=== PATIENT | female | born 2000 | race Hispanic/Latino ===

== ENCOUNTER 2022-05-30 16:38 | Emergency (ER) | payer OTHER, SELFPAY ==
--- NOTE | ~2022-05-30 | XR_ITS ---
XR chest 2V DATE: 05/30/2022 18:05 INDICATION: Chest pain TECHNIQUE: PA and lateral views COMPARISON: None FINDINGS: Normal heart size. No hilar or mediastinal enlargement. No pulmonary infiltrate or consolid ation, pleural effusion or pulmonary vascular congestion or pneumothorax. Status post cholecystectomy. Included skeletal structures are unremarkable. IMPRESSION: No active cardiopulmonary disease Status post cholecystectomy Reviewed, dictated and finalized at location A. ULA CHECKER
[2022-05-30 17:23] VITALS: BP 134/95; PULSE 82; RESP 16; TEMP 37.1; O2SAT 100
--- NOTE | 2022-05-30 17:25 | ECG_ITS ---
Measurements Intervals [place] Rate: 82 P: 23 SC: 145 QRS: 27 QRSD: 89 T: -9 QT: 360 QTc: 421 Interpretive Statements SINUS RHYTHM NONSPECIFIC T-WAVE ABNORMALITY NO PREVIOUS ECG AVAILABLE FOR COMPARISON Electronically Signed On 05-31-2022 17:48:18 CEMENT BREAKER by Niko Salguero M.D.
[2022-05-30 17:46] LABS: Basophils Absolute Auto 0.1 K/mm3 (0.0-0.1); Basophils Percent Auto 0.9 % (0.2-1.2); Eosinophils Absolute Auto 0.2 K/mm3 (0-0.3); Eosinophils Percent Auto 1.6 % (0-4.4); Hematocrit 43.3 % (37.0-47.0); Hemoglobin 14.7 g/dL (12.0-15.0); Immature Granulocyte Absolute 0.08 K/mm3 (0.00-0.031); Immature Granulocyte Percent A 0.6 % (0-0.5); Lymphocytes Absolute Auto 4.14 K/mm3 (0.9-3.2); Lymphocytes Percent Auto 31.6 % (18.3-44.2); Mean Corpuscular HGB Conc 33.9 g/dl (32-36); Mean Corpuscular Hemoglobin 29.3 pg (26-34); Mean Corpuscular Volume 86.4 fl (80-100); Monocytes Absolute Auto 0.8 K/mm3 (0.1-0.6); Monocytes Percent Auto 5.9 % (2.6-8.5); Neutrophils Absolute Auto 7.8 K/mm3 (1.3-6.7); Neutrophils Percent Auto 59.4 % (45.5-73.1); Platelet Count Result 310 k/mm3 (150-375); Red Blood Count 5.01 M/mm3 (4.2-5.4); Red Cell Distribution Width 12.4 % (11.5-14.5); White Blood Count 13.1 K/mm3 (4.5-10.0)
[2022-05-30 17:54] LABS: Prothrombin Time 13.1 Seconds (11.1-14.7)
[2022-05-30 17:55] LABS: Partial Thromboplastin Time 37.3 SECONDS (22.3-36.8)
[2022-05-30 17:58] LABS: Alanine Aminotransferase 52 U/L (6-35); Albumin Level 5.1 g/dL (3.5-5.1); Alkaline Phosphatase 122 U/L (38-126); Anion Gap 10 mmol/L (8-16); Aspartate Amino Transferase 32 U/L (14-36); Bilirubin,Total 0.4 mg/dL (0.2-1.3); Blood Urea Nitrogen 12 mg/dL (7-17); Calcium 9.4 mg/dL (8.4-10.2); Carbon Dioxide 23 mmol/L (22-30); Chloride 107 mmol/L (98-107); Estimated CRCL calculation 141 ml/min; Estimated Glomerular Filt Rate > 60; Glucose 92 mg/dL (65-110); Lipase 107 U/L (23-300); Sodium 140 mmol/L (137-145)
[2022-05-30 18:08] LABS: Troponin I < 0.012 ng/mL (0.000-0.034)
--- NOTE | 2022-05-30 19:26 | ED.CHESTPAIN ---
HPI - Chest Pain General Chief Complaint: Chest Pain Stated Complaint: shortness of breath Time Seen by Provider: 05/30/22 19:12 History of Present Illness HPI narrative: 22-year-old female presenting with symptoms of some chest tightness that started this morning, with a feeling of shortness of breath, nausea, tingling in her hands and feet, this all resolved for a while but came back for a few minutes while getting her x-rays. Today, and when awakened. She has been feeling somewhat stressed, she has been working 7 days a week. No significant medical history, no family history of heart disease, dissections, aneurysms. Related Data Allergies Allergy/AdvReac Type Severity Reaction Status Date / Time No Known Allergies Allergy Verified 05/30/22 20:02 Review of Systems Review of Systems: CONST: No fever. HEENT: No sore throat C/V: Chest tightness RESP: Shortness of breath GI: Nausea : No dysuria. M/S: No joint pain. SKIN: No rash. NEURO: Some tingling in hands and feet PSYCH: Very slight stress/anxiety PMFSH Past Medical History Medical History (Updated 05/31/22 @ 00:01 by Emilia Chahal) E. coli infection Family History Family History (Updated 05/30/22 @ 19:48 by Mary Parada MD) Other Diabetes mellitus Exam Narrative: EXAMINATION OF ORGAN SYSTEMS/BODY AREAS: Constitutional: Vital signs per nursing GENERAL:[No acute distress, non-toxic appearing.] HEAD: Normal with no signs of head trauma. EYES: EOMI, conjunctiva normal ENT: Hearing grossly intact LUNGS: Nonlabored breathing. Clear lung sounds auscultation bilaterally HEART: [Regular rate and rhythm] ABD: [Soft], [nontender to palpation] EXT: Normal range of motion SKIN: [No rashes or lesions.] NEURO: [Alert and oriented x 3. No gross focal sensory or strength deficits.] Ambulating with normal steady gait. PSYCH: Normal affect Course Vital Signs Vital signs: Vital Signs Temperature 98.7 F 05/30/22 17:23 Pulse Rate 82 05/30/22 17:23 Respiratory Rate 16 05/30/22 17:23 Blood Pressure 134/95 H 05/30/22 17:23 Pulse Oximetry 100 05/30/22 17:23 Oxygen Delivery Room Air 12/20/22 17:23 Temperature 98.7 F 12/20/22 17:23 Pulse Rate 82 05/30/22 17:23 Respiratory Rate 16 05/30/22 17:23 Blood Pressure 134/95 H 05/30/22 17:23 Pulse Oximetry 100 05/30/22 17:23 Oxygen Delivery Room Air 05/30/22 17:23 MDM - Chest Pain MDM Narrative Medical decision making narrative: 22yoF p/w symptoms likely anxiety/stress reaction, less likely ACS given her young age, PE as she is PERC negative without DVT symptoms, pneumonia without cough. Chest x-ray here is negative, labs including troponin are negative except for a slightly elevated white count. EKG - 12-Lead: Performed at 1730. Interpreted by me. [Sinus rhythm]. Rate 82. [Normal] axis. UT-interval [normal]. QRS duration [normal]. QTc [normal]. [No ST segment elevation or depression]. [T-wave normal]. Impression: No EKG evidence of acute ischemia or dysrhythmia. Patient is reassured, her symptoms have improved, she is no longer having any chest pain at this time, have urged her to follow-up with a primary care doctor and she can return for any worsening issues. Procedures: Pulse ox interpretation normal Lab Data 05/30/22 17:38 05/30/22 17:38 Labs: Lab Results 05/30/22 05/30/22 05/30/22 Range/Units 17:38 17:38 17:38 WBC 13.1 H (4.5-10.0) K/mm3 RBC 5.01 (4.2-5.4) M/mm3 Hgb 14.7 (12.0-15.0) g/dL Hct 43.3 (37.0-47.0) % MCV 86.4 (80-100) fl MCH 29.3 (26-34) pg MCHC 33.9 (32-36) g/dl RDW 12.4 (11.5-14.5) % Plt Count 310 (150-375) k/mm3 MPV 10.0 (7.4-10.4) fl Immature Gran % (Auto) 0.6 H (0-0.5) % Neut % (Auto) 59.4 (45.5-73.1) % Lymph % (Auto) 31.6 (18.3-44.2) % Blanco % (Auto) 5.9 (2.6-8.5) % Eos % (Auto) 1.6 (0-4.4) % Baso % (Auto) 0.9 (0.2-1.2) %
== END 2022-05-30 20:17 | disposition home or self-care (01) ==
PROVIDERS: Emergency Medicine; Emergency Provider Emergency Medicine; PCP Family Medicine
DX: R07.89 Other chest pain (principal); F41.9 Anxiety disorder, unspecified; R94.31 Abnormal electrocardiogram [ECG] [EKG]
CPT/HCPCS: 36415; 71046; 80053; 83690; 84484; 85025; 85610; 85730; 93005; 99284

== ENCOUNTER 2022-11-07 12:05 | Emergency (ER) | payer OTHER, SELFPAY ==
[2022-11-07 12:09] VITALS: PULSE 98; RESP 16; TEMP 36.6; O2SAT 98
[2022-11-07 12:58] LABS: Influenza A QL RT-PCR Negative (Negative); Influenza B QL RT-PCR Negative (Negative); RSV RNA, RT-PCR Negative (Negative); SARS-CoV-2 RNA PCR Negative (Negative)
--- NOTE | 2022-11-07 13:16 | PC.NURSE ---
Pt states I am going to leave because I am feeling better. Pt ambulated out in NAD, steady gait.
== END 2022-11-07 13:26 | disposition left against medical advice (07) ==
LOC: ANHED 13:19
PROVIDERS: Emergency Provider Emergency Medicine; PCP Family Medicine
DX: R06.00 Dyspnea, unspecified (principal); Z20.822 Contact with and (suspected) exposure to COVID-19
CPT/HCPCS: 87637; 99199

== ENCOUNTER 2022-12-16 02:30 | Observation (INO) | payer OTHER, MEDICAID, SELFPAY ==
[2022-12-16] VITALS (38 sets, daily range): BP systolic 104–155; BP diastolic 61–105; PULSE 80–105; RESP 14–82; TEMP 36.7–37; O2SAT 93–99; BMI 38.0
--- NOTE | ~2022-12-16 | US_ITS ---
EXAMINATION: US abdomen limited DATE: 12/17/2022 10:43 INDICATION: Abnormal liver function tests. TECHNIQUE: Multiple grayscale and Doppler ultrasound images of the abdomen were obtained. COMPARISON: None FINDINGS: The visualized portions of the head, body, and tail of the pancreas are normal. There is di ffuse hepatic steatosis. No liver surface nodularity. There is normal flow in main portal vein. The g allbladder is absent. The common duct is normal and measures 4 mm. IMPRESSION: 1. Diffuse hepatic steatosis. Reviewed, dictated and finalized at location A.
--- NOTE | 2022-12-16 02:40 | ECG_ITS ---
Measurements Intervals [place] Rate: 90 P: 35 [place]: 142 QRS: 24 QRSD: 93 T: 10 QT: 363 QTc: 446 Interpretive Statements SINUS RHYTHM BORDERLINE T WAVE ABNORMALITY- INFERIOR LEADS BORDERLINE ECG COMPARED TO ECG 05/30/2022 17:30:54 NO SIGNIFICANT CHANGES Electronically Signed On 12-16-2022 7:25:17 CDT by Junaid Chapa D.O.
--- NOTE | 2022-12-16 02:55 | PC.NURSE ---
2044 Called poison control, spoke with Keri, pharmacist and was informed to monitor for seizures, up to 12 hours and do supportive care. She also recommended do EKG, magnesium and potassium. She recommends to monitor patient up to at least 0700. She also states with the medication patient took, it can cause false positives on her drug screen. ERP notified.
[2022-12-16] MEDS: SODIUM CHLORIDE 0.9% IV 1,000 ML 999 ML IV CONT ×3 (03:10→06:08)
--- NOTE | 2022-12-16 03:10 | ED.GENADULT ---
HPI - General Adult General Chief complaint: Overdose <Aaron Sloan MD - Last Filed: 12/16/22 04:31> Stated complaint: DIZZY AFTER TAKING MEDS <Aaron Sloan MD - Last Filed: 12/16/22 04:31> Time Seen by Provider: 12/16/22 02:40 <Aaron Sloan MD - Last Filed: 12/16/22 04:31> History of Present Illness HPI narrative: Patient 22-year-old female who presents the emergency department with chief complaint of overdose. Patient states she is not sure why she did this but denies suicidal or homicidal ideation patient reports she took ten 300 mg Wellbutrin tablets today patient states she took 7 of them earlier in the day around noon and then took 3 of them at around 7 PM the patient then called poison control and they recommended the patient come to the emergency department for evaluation. <Aaron Sloan MD - Last Filed: 12/16/22 04:31> Related Data Home medications: Home Medications Medication Instructions Recorded Confirmed bupropion HCl 300 mg 24 hr tablet, mg PO 12/16/22 extended release <Aaron Sloan MD - Last Filed: 12/16/22 04:31> Allergies/adverse reactions: Allergies Allergy/AdvReac Type Severity Reaction Status Date / Time No Known Allergies Allergy Verified 12/16/22 02:40 <Aaron Sloan MD - Last Filed: 12/16/22 04:31> Review of Systems Review of Systems: A 10 system review of systems was completed on the patient and is negative except for what is stated in the HPI. Nursing and ancillary documentation was reviewed. <Aaron Sloan MD - Last Filed: 12/16/22 04:31> [facility] Past Medical History Medical History: Medical History E. coli infection <Aaron Sloan MD - Last Filed: 12/16/22 04:31> Family History Family History: Family History Other Diabetes mellitus <Aaron Sloan MD - Last Filed: 12/16/22 04:31> Exam Narrative: GENERAL: Well-appearing, well-nourished, and in no acute distress. HEAD: Normocephalic, atraumatic. EYES: PERRLA and EOMI. ENT: Nares clear, no rhinorrhea or epistaxis. Mucous membranes moist. NECK: Supple. CHEST: Clear to auscultation. No respiratory distress. HEART: Regular rate and rhythm. No murmur heard. Normal peripheral pulses. ABDOMEN: Soft, nontender, nondistended, normal active bowel sounds. EXTREMITIES: Normal range of motion. No edema. SKIN: Warm, dry, no rash. NEURO: No focal deficits. Alert and oriented x3. PSYCH: Normal mood and affect. <Aaron Sloan MD - Last Filed: 12/16/22 04:31> Course Course Emergency Course: Assumed care of patient at shift change. Patient is a 22-year-old female who ingested approximately 3 g of Wellbutrin yesterday with unclear intent. She remains hemodynamically stable but she has developed worsening hallucinations. On my evaluation, she is obviously responding to internal stimuli. Repeat EKG was performed which shows normal QRS and QTc. Poison control advises observation for at least 18 hours. I spoke with our hospitalist who advises admission to the ICU. I spoke with Dr. Herman who is happy to consult. Patient has been accepted to the ICU for observation and further evaluation. <Elena Mckenna MD - Last Filed: 12/16/22 07:01> Consultations Consultation #1: Spoke with Dr. Herman who advises 2 to 3 L normal saline. Additional fluids have been ordered. <Elena Mckenna MD - Last Filed: 12/16/22 07:01> Vital Signs Vital signs: Vital Signs Temperature 98.1 F 12/16/22 02:32 Pulse Rate 91 12/16/22 02:32 Respiratory Rate 15 12/16/22 02:32 Blood Pressure 144/93 H 12/16/22 02:32 Pulse Oximetry 98 12/16/22 02:32 Oxygen Delivery Room Air 12/16/22 02:32 Temperature 98.1 F 12/16/22 0
[2022-12-16 03:18] LABS: Basophils Absolute Auto 0.1 K/mm3 (0.0-0.1); Basophils Percent Auto 0.9 % (0.2-1.2); Eosinophils Absolute Auto 0.1 K/mm3 (0-0.3); Eosinophils Percent Auto 0.7 % (0-4.4); Immature Granulocyte Absolute 0.11 K/mm3 (0.00-0.031); Immature Granulocyte Percent A 0.9 % (0-0.5); Lymphocytes Absolute Auto 3.51 K/mm3 (0.9-3.2); Lymphocytes Percent Auto 29.1 % (18.3-44.2); Mean Corpuscular HGB Conc 33.3 g/dl (32-36); Mean Corpuscular Volume 89.9 fl (80-100); Monocytes Absolute Auto 0.8 K/mm3 (0.1-0.6); Monocytes Percent Auto 6.6 % (2.6-8.5); Neutrophils Absolute Auto 7.5 K/mm3 (1.3-6.7); Neutrophils Percent Auto 61.8 % (45.5-73.1); Platelet Count Result 289 k/mm3 (150-375); Red Blood Count 4.67 M/mm3 (4.2-5.4); Red Cell Distribution Width 12.3 % (11.5-14.5); White Blood Count 12.1 K/mm3 (4.5-10.0)
[2022-12-16 03:27] LABS: Acetaminophen < 10 ug/mL (10-30); Ethanol < 10 mg/dL (<10); Salicylate < 1.0 mg/dL (2-20)
[2022-12-16 03:29] LABS: Alanine Aminotransferase 51 U/L (6-35); Albumin Level 4.5 g/dL (3.5-5.1); Alkaline Phosphatase 114 U/L (38-126); Anion Gap 6 mmol/L (8-16); Aspartate Amino Transferase 37 U/L (14-36); Bilirubin,Total 0.3 mg/dL (0.2-1.3); Blood Urea Nitrogen 13 mg/dL (7-17); Calcium 9.2 mg/dL (8.4-10.2); Carbon Dioxide 26 mmol/L (22-30); Chloride 105 mmol/L (98-107); Estimated CRCL calculation 127 ml/min; Estimated Glomerular Filt Rate > 60; Glucose 98 mg/dL (65-110); Potassium 3.5 mmol/L (3.4-5.0); Sodium 137 mmol/L (137-145)
--- NOTE | 2022-12-16 03:49 | PC.NURSE ---
Patient attempted to provide a urine specimen, unsuccessful and patient unsteady on her feet. Patient states okay to do straight cath.
[2022-12-16 04:17] LABS: Appearance Urine Clear (Clear); Bacteria Urine None Seen /hpf; Bilirubin Urine Negative (Negative); Blood Urine Negative (Negative); Color Urine Yellow (Yellow); Glucose Urine UA Negative (Negative); Ketones Urine 1+ mg/dL (Negative); Leukocyte Esterase Ur Negative LEU/UL (Negative); Need Manual Microscopic Reviewed; Nitrate Urine Negative (Negative); Non Pathogenic Casts 0-2; Protein Urine Trace mg/dL (Negative); RBC Urine 0-2 /hpf (0-2); Specific Grav Ur 1.028 (1.001-1.035); Squamous Epithelial Cell Urine None seen /hpf (Few); WBC Urine 0-5 /hpf; pH Urine 5.5 (5.0-9.0)
[2022-12-16 04:38] LABS: Amphetamine Screen Urine Negative (Negative); Barbiturate Screen Urine Negative (Negative); Benzodiazepines Screen Urine Negative (Negative); Cannabinoid Screen Urine Positive (Negative); Cocaine Screen Urine Negative (Negative); Methadone Screen Urine Negative (Negative); Opiate Screen Urine Negative (Negative); Phencyclidine Screen Urine Negative (Negative)
[2022-12-16 04:41] LABS: Add Urine Microscopic? YES
--- NOTE | 2022-12-16 04:47 | PC.NURSE ---
Patient states I am kind of seeing the simpsons, like the tv show on the wall and ceiling. I don't even watch that show. ERP notified.
--- NOTE | 2022-12-16 05:02 | PC.NURSE ---
Addendum entered by Linda Davis RN 12/16/22 05:09: Jacqueline also stated patient may be exhibiting signs of toxicity and may need to be monitored longer than initial 12hr post last ingestion. ERP notified and request possible admittance to hospital for monitoring. Original Note: Jacqueline RN from poison control calls to get update on patient and lab results. This RN informed her of lab results and some hallucinations the patient was seeing. Jacqueline also with patient starting to hallucinate she may have some delayed n/v or other symptoms such as urinary retention and to possibly monitor for 12-16 hours post last ingestion. She stated they will call back later for updates. ERP notified.
--- NOTE | 2022-12-16 05:53 | PC.NURSE ---
Patient states she is seeing more cartoons now. ERP notified.
--- NOTE | 2022-12-16 06:12 | PC.NURSE ---
Patient c/o headache and nausea, ERP notified.
[2022-12-16] MEDS: ACETAMINOPHEN 500 MG TABLET 1000 MG PO (06:16)
--- NOTE | 2022-12-16 08:09 | ECG_ITS ---
Measurements Intervals [place] Rate: 91 P: 31 [place]: 124 QRS: 37 QRSD: 90 T: -2 QT: 351 QTc: 433 Interpretive Statements SINUS RHYTHM BORDERLINE ST-T WAVE ABNORMALITY- INFERIOR LEADS BASELINE ARTIFACT- I, III, AVR, AVL, AVF, V1 BORDERLINE ECG COMPARED TO ECG 12/16/2022 13:29:52 ST-T WAVE ABNORMALITY NOW PRESENT Electronically Signed On 12-17-2022 7:26:52 CDT by Junaid Chapa D.O.
--- NOTE | 2022-12-16 08:17 | ADMGEN ---
This patient, Melba Rivera, was admitted to Intensive Care Unit-7 at 0729, suicide precautions initiated. Patient/family oriented to hospital policies and general routines including ID bracelet, bed and alarms, visiting hours, pain management, procedures, bathroom and other care routines, personal items, smoking policy, room service/diet, and visiting hours. Information on how to activate the Rapid Response Team has been discussed. Patient/Family are encouraged to report perceived risks to care and to ask questions if they do not understand what they are told or what they should do.
--- NOTE | 2022-12-16 09:09 | WPDCNINT ---
Assessment and Plan Assessment and plan (1) Drug overdose: Code(s): T50.901A - Poisoning by unspecified drugs, medicaments and biological substances, accidental (unintentional), initial encounter Status: Acute Assessment and Plan: 12/16/2022: Patient presented with drug overdose, the ER she states she that she took Wellbutrin 300 mg x 10 pills (7 pills in the afternoon of 12/15/2022 and 3 pills at around 7:00 p.m. on 12/15/2022), after which she cold the poison Control and they recommend that she come to the ED for evaluation. -poison control was notified from the ER, recommended monitoring patient with serial EKGs, no indication for bicarb at this time -patient will be given a total of 3 L of IV fluids -will continue maintenance IV fluids -watch for serotonin syndrome -watch for tachycardia, hypertension, fevers, clonus, seizures, altered mental status, abdominal pain, nausea, vomiting, diarrhea -serial EKGs (2) Hallucinations, visual: Code(s): R44.1 - Visual hallucinations Status: Acute Assessment and Plan: Hallucinations have resolved, will continue to monitor any neurologic symptoms (3) Depression: Code(s): F32.A - Depression, unspecified Status: Acute Assessment and Plan: Patient with history of depression, possible suicidal behavior with overdose -will have crisis management and care coordination evaluate the patient when she is stable Plan DVT prophylaxis: SCDs Stress ulcer prophylaxis: Not indicated Nutrition: Regular diet Code Status: Full code Critical Care Time Spent: 45 minutes Due to a high probability of clinically significant, life threatening deterioration, the patient required my highest level of preparedness to intervene emergently and I personally spent this critical care time directly and personally managing the patient. This critical care time included obtaining a history; examining the patient; pulse oximetry; ordering and review of studies; arranging urgent treatment with development of a management plan; evaluation of patient's response to treatment; frequent reassessment; and discussions with other providers. It was exclusive of separately billable procedures and treating other patients and teaching time. Please see Assessment and Plan section and the rest of the note for further information on patient assessment and treatment This dictation may have been done utilizing a voice recognition system. Attempts have been made to correct errors. However, there may be uncorrected grammatical, spelling, and recognitions errors present. Geography Teacher Consult Note Consult date: 12/16/22 HPI: Melba Rivera is a 22 year old female past medical history of depression, seasonal asthma presented the ED on 12/16/2022 with complains of overdose. Patient stated that she took Wellbutrin 300 mg x 10 pills (7 pills in the afternoon of 12/15/2022 and 3 pills at around 7:00 p.m. on 12/15/2022), after which she cold the poison Control and they recommend that she come to the ED for evaluation. Patient has been hemodynamically stable, QTC on the initial EKG was 446. WBC count is 12.1, slightly elevated LFTs, UA was negative, drug screen was positive for cannabinoids. Patient was given 1 L of IV fluids, I discussed with the ER physician and recommended giving at 2 2 L of IV fluid bolus. Poison Control was notified from the ER and they recommended monitoring a QTC on serial EKGs, no bicarb infusion at this time was recommended. He was transferred to the ICU for further management as she was initially having some hallucination. Patient seen and examined the ICU, remains hemodynamically stable, is alert, awake, oriented x3, denies any hallucinations at this time. She states that she has seasonal asthma, depression. She did take some marijuana. She denies any alcohol or other illicit drugs. Patient denies any chest pain, shortness of breath, abdominal pain, nausea, vomiting, lightheadedn
[2022-12-16] MEDS: LACTATED RINGERS 1,000 ML 75 ML IV CONT (09:17)
--- NOTE | 2022-12-16 09:59 | PC.NURSE ---
Melba has given permission to give information to her contact Angle.
--- NOTE | 2022-12-16 12:09 | ECG_ITS ---
Measurements Intervals [place] Rate: 90 P: 34 [place]: 150 QRS: 26 QRSD: 91 T: 0 QT: 370 QTc: 453 Interpretive Statements SINUS RHYTHM BORDERLINE T WAVE ABNORMALITY- INFERIOR LEADS BORDERLINE ECG COMPARED TO ECG 12/16/2022 05:36:52 NO SIGNIFICANT CHANGES Electronically Signed On 12-16-2022 16:31:31 CDT by Junaid Chapa D.O.
--- NOTE | 2022-12-16 14:46 | PC.NURSE ---
Code purple called at 1441 due to patient yelling at ICU psychiatry instructor wanting to leave and get off suicide precautions. Patient not medically cleared at this time. Security at bedside to remind patient she cannot leave until crisis comes to evaluate once medically clear. Patient refusing IV fluids and sitting on couch in ICU 7 with no telemetry on. ICU psychiatry instructor aware patient will not put telemetry back on. Will try to place patient back on monitor once patient gets back to bed.
--- NOTE | 2022-12-16 14:47 | PC.NURSE ---
Patient became agitated and attempting to pull out IV after speaking with Dr. Herman. She is upset with suicide precautions and doesn't like to be watched. She wants to go AMA and became upset when told she is unable to do so. She refused to answer Dr. Herman about why she took 10 Wellbutrin. She said she took them to just see how long it would take but didn't say how long it would take to do what. She stated I didn't take that many why would a suicide person call 911 but still refuses to say why she took the pills that are over a year old. [facility] called and security in room speaking with patient. Patient sitting on couch and refusing to get hooked back up to telemetry. Dr. Herman aware she is not on telemetry at this time. He said to discontinue her IVF. She is eating and urinating ok.
--- NOTE | 2022-12-16 16:09 | ECG_ITS ---
Measurements Intervals [place] Rate: 76 P: 35 [place]: 153 QRS: 30 QRSD: 90 T: 5 QT: 391 QTc: 442 Interpretive Statements SINUS RHYTHM WITH SINUS ARRHYTHMIA BASELINE ARTIFACT- I, II, AVR, AVL NORMAL ECG COMPARED TO ECG 12/16/2022 20:09:08 SINUS ARRHYTHMIA NOW PRESENT Electronically Signed On 12-17-2022 7:33:49 CDT by Junaid Chapa D.O.
--- NOTE | 2022-12-16 16:12 | PM.IMHP ---
H&P: HPI History of Present Illness Date/Time: 12/16/22 16:12 Chief Complaint: overdose Narrative: ED-HPI narrative: ? ? ? Patient 22-year-old female who presents the emergency department with chief complaint of overdose.? Patient states she is not sure why she did this but denies suicidal or homicidal ideation patient reports she took ten 300 mg Wellbutrin tablets today patient states she took 7 of them earlier in the day around noon and then took 3 of them at around 7 PM the patient then called poison control and they recommended the patient come to the emergency department for evaluation. Patient is 22 year old female under lot of stress and recently her mother and resulted reactive depression and took 9tabs of Wellbutrin which were prescribed to her sometime ago, aftertaking the medication patient felt remorse and herself called poisen controlled and came to ER, patient is being monitor, her EKG are normal. Patient has no c/o chest pain, shortness of breath, dizziness, or palpitation.. Patient is upset at herself and at time angry, pulled out her telemonitor and IV, I spoke with her and explained to that we need to monitor her heart, she has agreed to keep tele, will reassess patient in the morning and plan. Patient admitted as an observation status Review of Systems Review of Systems: All systems reviewed & are unremarkable except as noted in HPI and below PMFSH Past Medical History Medical History E. coli infection Family History Family History (Updated 12/16/22 @ 08:38 by Alejandrina Ann RN) Father Hyperthyroidism Grandparent Diabetes mellitus Other Hypothyroidism Social History Social History Smoking status: Never smoker Alcohol intake: current Drinks per week: 0 Substance use: never Substance use type: does not use Lack of Transportation: No Lack of Food: Never True Current Housing: I Have Housing Concerned About Future Housing: No Difficulty Paying Gas/Electric Bills: No Difficulty Paying for Meds: No Currently Unemployed: No Education: High School Diploma/GED Difficulty w/ Childcare or Family Care: No Spiritual care concerns: No Meds Home Medications and Allergies Home Medications Medication Instructions Recorded Confirmed Type No Home Medications 12/16/22 12/16/22 History Allergies Allergy/AdvReac Type Severity Reaction Status Date / Time No Known Allergies Allergy Verified 12/16/22 02:40 Vital Signs Vital Signs - 24 hr 12/16/22 02:32 12/16/22 02:39 12/16/22 02:37 Temperature 98.1 F Pulse Rate 91 87 Respiratory Rate 15 82 H 17 Blood Pressure 144/93 H 144/93 H Pulse Oximetry 98 98 Oxygen Delivery Room Air 12/16/22 02:38 12/16/22 02:45 12/16/22 02:47 Temperature Pulse Rate 101 H 96 92 Respiratory Rate 15 16 15 Blood Pressure 136/89 Pulse Oximetry 98 96 96 Oxygen Delivery 12/16/22 03:00 12/16/22 03:15 12/16/22 03:30 Temperature Pulse Rate 96 101 H 86 Respiratory Rate 19 25 H 14 Blood Pressure Pulse Oximetry 98 96 97 Oxygen Delivery 12/16/22 03:32 12/16/22 03:48 12/16/22 04:00 Temperature Pulse Rate 89 105 H 91 Respiratory Rate 15 14 17 Blood Pressure 127/69 Pulse Oximetry 96 98 99 Oxygen Delivery 12/16/22 04:15 12/16/22 04:17 12/16/22 04:30 Temperature Pulse Rate 94 93 94 Respiratory Rate 20 14 16 Blood Pressure 115/64 Pulse Oximetry 95 95 94 Oxygen Delivery 12/16/22 04:45 12/16/22 05:00 12/16/22 05:01 Temperature Pulse Rate 93 92 92 Respiratory Rate 23 H 17 22 H Blood Pressure 121/82 Pulse Oximetry 96 96 95 Oxygen Delivery 12/16/22 05:15 12/16/22 05:30 12/16/22 05:45 Temperature Pulse Rate 91 97 80 Respiratory Rate 14 24 H 17 Blood Pressure Pulse Oximetry 94 95 95 Oxygen Delivery 12/16/22 05:47 07/0
--- NOTE | 2022-12-16 17:45 | PC.NURSE ---
Patient is calm at this time. She allowed her telemetry to be hooked back up after speaking with Dr. Cooper. Her friend came to visit and she is feeling a little better. Her friend will stay with her tonight. Both patient and friend abiding by the suicide precaution rules.
--- NOTE | 2022-12-16 20:09 | ECG_ITS ---
Measurements Intervals [place] Rate: 80 P: 27 [place]: 135 QRS: 23 QRSD: 94 T: 12 QT: 378 QTc: 437 Interpretive Statements SINUS RHYTHM NORMAL ECG COMPARED TO ECG 12/16/2022 09:31:49 NO SIGNIFICANT CHANGES Electronically Signed On 12-16-2022 16:44:00 CDT by Junaid Chapa D.O.
[2022-12-17] VITALS (7 sets, daily range): BP systolic 118–134; BP diastolic 82–93; PULSE 72–105; RESP 16–21; TEMP 36.9–37; O2SAT 96–98
--- NOTE | 2022-12-17 00:09 | ECG_ITS ---
Measurements Intervals [place] Rate: 77 P: 14 [place]: 142 QRS: 47 QRSD: 91 T: 2 QT: 389 QTc: 440 Interpretive Statements SINUS RHYTHM BASELINE WANDER- V1 NORMAL ECG COMPARED TO ECG 12/16/2022 23:53:00 NO SIGNIFICANT CHANGES Electronically Signed On 12-17-2022 7:35:14 CDT by Junaid Chapa D.O.
--- NOTE | 2022-12-17 04:09 | ECG_ITS ---
Measurements Intervals [place] Rate: 86 P: 33 [place]: 131 QRS: 32 QRSD: 94 T: -14 QT: 357 QTc: 428 Interpretive Statements SINUS RHYTHM BORDERLINE ST-T WAVE ABNORMALITY- INFERIOR LEADS BASELINE ARTIFACT- I, II BORDERLINE ECG COMPARED TO ECG 12/17/2022 04:02:26 NO SIGNIFICANT CHANGES Electronically Signed On 12-17-2022 18:33:10 CDT by Junaid Chapa D.O.
[2022-12-17 04:35] LABS: Basophils Absolute Auto 0.1 K/mm3 (0.0-0.1); Basophils Percent Auto 1.1 % (0.2-1.2); Eosinophils Absolute Auto 0.1 K/mm3 (0-0.3); Eosinophils Percent Auto 0.7 % (0-4.4); Hematocrit 38.2 % (37.0-47.0); Hemoglobin 12.7 g/dL (12.0-15.0); Immature Granulocyte Percent A 0.9 % (0-0.5); Lymphocytes Absolute Auto 3.45 K/mm3 (0.9-3.2); Lymphocytes Percent Auto 32.1 % (18.3-44.2); Mean Corpuscular HGB Conc 33.2 g/dl (32-36); Mean Corpuscular Hemoglobin 29.9 pg (26-34); Mean Corpuscular Volume 89.9 fl (80-100); Mean Platelet Volume 9.7 fl (7.4-10.4); Monocytes Absolute Auto 0.9 K/mm3 (0.1-0.6); Neutrophils Absolute Auto 6.2 K/mm3 (1.3-6.7); Neutrophils Percent Auto 57.2 % (45.5-73.1); Platelet Count Result 252 k/mm3 (150-375); Red Blood Count 4.25 M/mm3 (4.2-5.4); Red Cell Distribution Width 12.5 % (11.5-14.5); White Blood Count 10.8 K/mm3 (4.5-10.0)
[2022-12-17 04:54] LABS: Alanine Aminotransferase 70 U/L (6-35); Albumin Level 4.1 g/dL (3.5-5.1); Alkaline Phosphatase 80 U/L (38-126); Anion Gap 8 mmol/L (8-16); Aspartate Amino Transferase 120 U/L (14-36); Bilirubin,Total 0.5 mg/dL (0.2-1.3); Blood Urea Nitrogen 7 mg/dL (7-17); Carbon Dioxide 26 mmol/L (22-30); Chloride 107 mmol/L (98-107); Estimated CRCL calculation 127 ml/min; Estimated Glomerular Filt Rate > 60; Glucose 88 mg/dL (65-110); Magnesium 1.9 mg/dL (1.6-2.3); Phosphorus 4.4 mg/dL (2.5-4.5); Potassium 3.6 mmol/L (3.4-5.0); Sodium 141 mmol/L (137-145)
[2022-12-17 08:37] LABS: Hepatitis B Surface Antigen Negative (Negative)
[2022-12-17 08:43] LABS: HAV RESULT Negative (Negative); Hepatitis B Core IgM Result Negative (Negative)
[2022-12-17 08:55] LABS: Hepatitis C Virus Antibody Negative (Negative)
[2022-12-17] MEDS: CALCIUM CARBONATE (TUMS) 500 MG (200 MG ELEMENTAL) PO (11:22)
--- NOTE | 2022-12-17 12:19 | PM.DS ---
DS: Admitting Diagnosis Discharge Date 12/17/2022 Admitting Diagnosis Overdose DS: Discharge Diagnosis Discharge Diagnosis (1) Drug overdose: Code(s): T50.901A - Poisoning by unspecified drugs, medicaments and biological substances, accidental (unintentional), initial encounter Status: Acute Assessment and Plan: 12/16/2022: Patient presented with drug overdose, the ER she states she that she took Wellbutrin 300 mg x 10 pills (7 pills in the afternoon of 12/15/2022 and 3 pills at around 7:00 p.m. on 12/15/2022), after which she cold the poison Control and they recommend that she come to the ED for evaluation. -poison control was notified from the ER, recommended monitoring patient with serial EKGs, no indication for bicarb at this time -received a total of 3 L of IV fluids bolus -will discontinue maintain IV fluids -hemodynamically stable, afebrile, normal blood pressures, normal maintain -serial EKGs with normal QTC and QT intervals -patient is medically stable from ICU standpoint for crisis management and care coordination evaluation (2) Hallucinations, visual: Code(s): R44.1 - Visual hallucinations Status: Acute Assessment and Plan: Hallucinations have resolved, will continue to monitor any neurologic symptoms (3) Depression: Code(s): F32.A - Depression, unspecified Status: Acute Assessment and Plan: Patient with history of depression, possible suicidal behavior with overdose -will have crisis management and care coordination evaluate the patient since she is medically stable (4) Elevated LFTs: Code(s): R79.89 - Other specified abnormal findings of blood chemistry Status: Acute Assessment and Plan: Hepatitis panel is negative -right upper quadrant ultrasound showed diffuse hepatic steatosis DS: Summary Hospital Course Reason for hospitalization: ?? ? Patient 22-year-old female who presents the emergency department with chief complaint of overdose.? Patient states she is not sure why she did this but denies suicidal or homicidal ideation patient reports she took ten 300 mg Wellbutrin tablets today patient states she took 7 of them earlier in the day around noon and then took 3 of them at around 7 PM the patient then called poison control and they recommended the patient come to the emergency department for evaluation. Patient is 22 year old female under lot of stress and recently her mother and resulted reactive depression and took 9tabs of Wellbutrin which were prescribed to her sometime ago, aftertaking the medication patient felt remorse and herself called poisen controlled and came to ER, patient is being monitor, her EKG are normal. Patient has no c/o chest pain, shortness of breath, dizziness, or palpitation.. Patient is upset at herself and at time angry, pulled out her telemonitor and IV, I spoke with her and explained to that we need to monitor her heart, she has agreed to keep tele, will reassess patient in the morning and plan. Hospital Course: Patient is clinically stable and was seen by crisis team and has agreed not to harm herself in her roomate is present in the room, will discharge the patient today Time Spent with Patient Time attestation: Total time spent providing and/or coordinating discharge services: Exam Narrative: Morbidly obese Patient is comfortable, NAD HEENT: eyes are clear and none icteric LUNGS: Normal respiratory effort ABD: Distended Lower extremities: no edema SKIN: nonjaundiced Neuro: grossly intact. DS: Data Data Completed and Pending Labs on day of discharge: Labs from last 24 hours 12/17/22 12/17/22 04:26 04:22 WBC 10.8 H RBC 4.25 Hgb 12.7 Hct 38.2 MCV 89.9 MCH 29.9 MCHC 33.2 RDW 12.5 Plt Count 252 MPV 9.7 Immature Gran % (Auto) 0.9 H Neut % (Auto) 57.2 Lymph % (Auto) 32.1 [place] % (Auto) 8.0 Eos % (Auto) 0.7 Baso % (Auto) 1.1 Lymph # (Auto) 3.45 H
--- NOTE | 2022-12-17 12:36 | WPDINTPN ---
Progress Note: A&P Assessment and Plan (1) Drug overdose: Code(s): T50.901A - Poisoning by unspecified drugs, medicaments and biological substances, accidental (unintentional), initial encounter Status: Acute Assessment and Plan: 12/16/2022: Patient presented with drug overdose, the ER she states she that she took Wellbutrin 300 mg x 10 pills (7 pills in the afternoon of 12/15/2022 and 3 pills at around 7:00 p.m. on 12/15/2022), after which she cold the poison Control and they recommend that she come to the ED for evaluation. -poison control was notified from the ER, recommended monitoring patient with serial EKGs, no indication for bicarb at this time -received a total of 3 L of IV fluids bolus -will discontinue maintain IV fluids -hemodynamically stable, afebrile, normal blood pressures, normal maintain -serial EKGs with normal QTC and QT intervals -patient is medically stable from ICU standpoint for crisis management and care coordination evaluation (2) Hallucinations, visual: Code(s): R44.1 - Visual hallucinations Status: Acute Assessment and Plan: Hallucinations have resolved, will continue to monitor any neurologic symptoms (3) Depression: Code(s): F32.A - Depression, unspecified Status: Acute Assessment and Plan: Patient with history of depression, possible suicidal behavior with overdose -will have crisis management and care coordination evaluate the patient since she is medically stable (4) Elevated LFTs: Code(s): R79.89 - Other specified abnormal findings of blood chemistry Status: Acute Assessment and Plan: Hepatitis panel is negative -right upper quadrant ultrasound showed diffuse hepatic steatosis Plan DVT prophylaxis: SCDs Stress ulcer prophylaxis: Not indicated Nutrition: Regular diet Code Status: Full code Critical Care Time Spent: 31 minutes Patient can be downgraded to medical status but will remain in the ICU for possible drug overdose and suicidal precautions Discussed with patient and her friend at bedside and updated them regarding patient's condition and plan of care. I answered all questions Due to a high probability of clinically significant, life threatening deterioration, the patient required my highest level of preparedness to intervene emergently and I personally spent this critical care time directly and personally managing the patient. This critical care time included obtaining a history; examining the patient; pulse oximetry; ordering and review of studies; arranging urgent treatment with development of a management plan; evaluation of patient's response to treatment; frequent reassessment; and discussions with other providers. It was exclusive of separately billable procedures and treating other patients and teaching time. Please see Assessment and Plan section and the rest of the note for further information on patient assessment and treatment This dictation may have been done utilizing a voice recognition system. Attempts have been made to correct errors. However, there may be uncorrected grammatical, spelling, and recognitions errors present. Subjective Date/time seen: 12/17/22 12:36 Interval history: Reason for consult: Drug overdose -ingested Wellbutrin 300 mg x 10 pills, suicidal behavior, hallucinations, depressed 12/17/2022: Patient seen and examined the ICU, is awake, alert, oriented x3, nonfocal. Denies any chest pain, abdominal pain, nausea, vomiting. Serial EKGs with normal QTc and QT interval. Patient is hemodynamically stable, afebrile, adequate urine output. Elevated LFTs this morning Review of Systems Review of Systems: All systems reviewed & are unremarkable except as noted in HPI and below Exam Narrative: General: Pleasant female in no acute distress HEENT:? Pupils equal and reactive, sclera is clear, moist oral mucosa Neck:? Supple Respiratory:? Clear to auscultation bilaterally, no
--- NOTE | 2022-12-17 13:41 | PC.NURSE ---
INDIO here to assess patient.
== END 2022-12-17 14:42 | disposition home or self-care (01) ==
LOC: ANHED 07:01 → ANHICU 07:19
PROVIDERS: Internal Medicine; Admitting Provider Internal Medicine; Emergency Provider Emergency Medicine; PCP Family Medicine; Visit Provider Family Medicine
DX: T43.294A Poisoning by other antidepressants, undetermined, initial encounter (principal); R44.1 Visual hallucinations; F32.A Depression, unspecified; K76.0 Fatty (change of) liver, not elsewhere classified; J45.998 Other asthma; D72.829 Elevated white blood cell count, unspecified; R79.89 Other specified abnormal findings of blood chemistry; F10.90 Alcohol use, unspecified, uncomplicated; Y90.0 Blood alcohol level of less than 20 mg/100 ml; F12.90 Cannabis use, unspecified, uncomplicated; Z79.899 Other long term (current) drug therapy
CPT/HCPCS: 36415; 76705; 80053; 80074; 80307; 81001; 81025; 83735; 84100; 85025; 93005; 96360; 96361; 99285; A9270; G0378; J7030; J7120